=== PATIENT | male | born 1965 | race Caucasian/White ===

== ENCOUNTER 2019-08-19 19:28 | Emergency (ER) | payer BC ==
[~2019-08-19] VITALS: Ht 170.2 cm; Wt 92.9 kg
--- NOTE | 2019-08-19 19:44 | NUR ---
ERP AT BEDSIDE.
[2019-08-19] MEDS ORDERED: ASPIRIN 81 MG TABLET CHEW ONE (19:48)
--- NOTE | 2019-08-19 19:56 | NUR ---
PT TRAVELLING FROM [place]. STATES AROUND NOON TODAY, STARTED WITH L CHEST DISCOMFORT. PAIN WORSE WITH DEEP BREATHING. NO S/S OF ACUTE DISTRESS AT THIS TIME. NSR ON MONITOR WITH VSS. PT DENIES NEED FOR PAIN MEDS. IV HELD PER ERP, ONLY LABS TO BE DRAWN. ASA GIVEN. CALL LIGHT IN REACH. PT AWARE OF POC.
[2019-08-19] MEDS ORDERED: MORPHINE SULFATE 4 MG/ML, 1ML IVPush PRN (20:00)
[2019-08-19] MEDS ORDERED: ONDANSETRON 2MG/ML, 2ML IVPush ONE (20:00)
[2019-08-19] MEDS ORDERED: SODIUM CHLORIDE FLUSH 10ML SYR IVF ONE (20:00)
[2019-08-19] MEDS ORDERED: ASPIRIN 81 MG TABLET CHEW PO ONE (20:00)
[2019-08-19 20:19] LABS: BASOPHILS # (AUTO) 0.02 x10^3/uL (0-0.1); BASOPHILS % (AUTO) 0 % (0-1); EOSINOPHILS # (AUTO) 0.22 x10^3/uL (0-0.4); EOSINOPHILS % (AUTO) 3 % (1-7); LYMPHOCYTES # (AUTO) 2.62 x10^3/uL (1-3.4); LYMPHOCYTES % (AUTO) 36 % (22-44); MD NO; MEAN CORPUSCULAR HEMOGLOBIN 31.6 pg (27.5-34.5); MEAN CORPUSCULAR VOLUME 92.9 fL (81-97); MEAN PLATELET VOLUME 9.1 fL (7.4-10.4); MONOCYTES # (AUTO) 0.54 x10^3/uL (0.2-0.8); MONOCYTES % (AUTO) 7 % (2-9); NEUTROPHILS # (AUTO) 3.81 x10^3/uL (1.8-6.8); NEUTROPHILS % (AUTO) 53 % (42-75); PLATELET COUNT 164 x10^3/uL (130-400); RED BLOOD COUNT 4.78 x10^6/uL (4.38-5.82); RED CELL DISTRIBUTION WIDTH 12.2 % (9.4-14.8)
[2019-08-19 20:24] LABS: ALANINE AMINOTRANSFERASE 28 U/L (12-78); ALBUMIN 3.9 g/dL (3.4-5.0); ANION GAP 6 mmol/L (5-15); CALCIUM 8.4 mg/dL (8.5-10.1); CHLORIDE 108 mmol/L (98-107); CREATININE 1.18 mg/dL (0.7-1.3)
--- NOTE | 2019-08-19 20:26 | NUR ---
Pt resting comfortably with no acute changes. Continues with mild discomfort to L shoulder blade area with deep breathing. NSR on monitor. VSS. Call light in reach. No needs expressed.
[2019-08-19 20:29] LABS: ALKALINE PHOSPHATASE 76 U/L (45-117); BILIRUBIN,TOTAL 0.7 mg/dL (0.2-1.0); TOTAL PROTEIN 7.7 g/dL (6.4-8.2); TROPONIN I < 0.015 ng/mL (0.000-0.045)
[2019-08-19 21:02] VITALS: BP 129/83
== END 2019-08-19 21:06 | disposition home or self-care (01) ==
LOC: ED 21:00
DX: R07.2 Precordial pain (principal)
CPT/HCPCS: 36415; 71045; 80053; 83880; 84484; 85025; 85379; 93005; 99284